=== PATIENT | female | born 1995 | race Hispanic/Latino ===

== ENCOUNTER 2023-10-20 06:08 | Inpatient (IN) | payer MEDICARE, OTHER ==
[2023-10-20] VITALS (14 sets, daily range): BP systolic 158–198; BP diastolic 85–113; PULSE 84–110; RESP 16–22; TEMP 98.2–98.4; O2SAT 95
[~2023-10-20] VITALS: Ht 162.6 cm; Wt 88.5 kg
[~2023-10-20 06:08] MED LIST: LISI40TA9 PO; METO50TA18 PO
[2023-10-20 06:52] LABS: BASOPHILS # (AUTO) 0.04 K/uL (0.00-0.20); BASOPHILS % (AUTO) 0.8 % (0.0-5.0); EOSINOPHILS # (AUTO) 0.14 K/uL (0.00-0.70); EOSINOPHILS % (AUTO) 2.7 % (0.0-8.0); IMMATURE GRANULOCYTE ABSOLUTE 0.02 K/uL (0-1); LYMPHOCYTES # (AUTO) 1.8 K/uL (1.0-4.8); MEAN CORPUSCULAR HEMOGLOBIN 30.1 pg (27.0-33.0); MEAN CORPUSCULAR VOLUME 94.3 fL (79-99); MONOCYTES # (AUTO) 0.4 K/uL (0.1-1.0); MONOCYTES % (AUTO) 8.3 % (3.0-13.0); NEUTROPHILS # (AUTO) 2.7 K/uL (1.8-7.7); NEUTROPHILS % (AUTO) 52.8 % (40.0-77.0); PLATELET COUNT (AUTO) 150 K/uL (130-400); RED BLOOD CELL COUNT(AUTO) 2.09 MIL/uL (4.00-5.50); RED CELL DISTRIBUTION WIDTH 18.9 % (11.0-15.5); WHITE BLOOD COUNT (AUTO) 5.2 K/uL (4.8-10.8)
[2023-10-20 07:01] LABS: ALBUMIN 2.5 g/dL (3.5-5.0); POTASSIUM 4.5 mmol/L (3.5-5.1)
[2023-10-20 07:05] LABS: BILIRUBIN,TOTAL 0.3 mg/dL (0.2-1.0); TOTAL PROTEIN, SERUM 5.8 g/dL (6.0-8.3)
[2023-10-20 07:07] LABS: HEMATOCRIT 19.7 % (36-48)
[2023-10-20] MEDS: CLONIDINE HCL 0.1 MG TABLET PO ONE (07:08)
[2023-10-20 07:32] LABS: INR 0.98 (0.85-1.15); PARTIAL THROMBOPLASTIN TIME 24.7 SEC (26.3-35.5); PROTHROMBIN TIME 10.4 SEC (9.6-11.6)
[2023-10-20] MEDS: LORAZEPAM 2 MG/ML 1 ML VIAL IVP ONE (07:48)
[2023-10-20] MEDS: FUROSEMIDE 40MG VIAL IV SCH (07:59)
[2023-10-20] MEDS ORDERED: METO100T14 PO (08:17)
[2023-10-20] MEDS ORDERED: FERR-72 PO (08:17)
[2023-10-20] MEDS ORDERED: AMLO-258 PO (08:17)
[2023-10-20] MEDS ORDERED: CALC0.253 PO (08:17)
[2023-10-20] MEDS ORDERED: LISI40TA9 PO (08:17)
[2023-10-20] MEDS ORDERED: MINO2.5T3 PO (08:17)
[2023-10-20] MEDS ORDERED: FERR210T PO (08:17)
[2023-10-20 09:19] LABS: PHOSPHORUS 8.2 mg/dL (2.5-4.9)
[2023-10-20] MEDS ORDERED: VANCOMYCIN PROTOCOL PER PHARMACY IV SCH (09:30)
[2023-10-20] MEDS: HYDRALAZINE 20MG/ML VIAL IV PRN (09:33)
[2023-10-20] MEDS ORDERED: PHARMACY COMMUNICATION MISC SCH ×2 (10:30→16:00)
[2023-10-20] MEDS: 0.9%NACL 1000ML 1,000 ML IV SCH (11:10)
[2023-10-20] MEDS: HEPARIN 5,000 UNIT VIAL IJ SCH (11:37)
[2023-10-20] MEDS: SEVELAMER HCL 800 MG TABLET PO SCH (12:00)
[2023-10-20] MEDS: ALPRAZOLAM 0.25 MG TABLET PO PRN (16:36)
[2023-10-20] MEDS: VANCOMYCIN 1.5 GM/250 ML BAG 250 ML IV ONE (16:37)
[2023-10-20] MEDS: AMLODIPINE 5 MG TAB PO SCH (16:37)
[2023-10-20] MEDS: METOPROLOL TARTRATE 50 MG TAB PO SCH (16:42)
[2023-10-20] MEDS: ONDANSETRON 4MG INJ IVP PRN (20:52)
[2023-10-20] MEDS ORDERED: ACETAMINOPHEN 500 MG TABLET PO PRN (23:30)
[2023-10-20] MEDS: GUAIFENESIN-DM 200/20 MG 10 ML PO PRN (23:31)
[2023-10-20] MEDS: ACETAMINOPHEN 325 MG TAB PO PRN (23:32)
[2023-10-21] VITALS (16 sets, daily range): BP systolic 153–199; BP diastolic 87–124; PULSE 83–99; RESP 14–20; TEMP 98–98.4; O2SAT 96
[2023-10-21] MEDS: HYDROCODONE/ACETAMINOPHEN 10/325 MG TAB PO PRN (00:45)
[2023-10-21 05:57] LABS: BASOPHILS # (AUTO) 0.08 K/uL (0.00-0.20); BASOPHILS % (AUTO) 1.9 % (0.0-5.0); EOSINOPHILS # (AUTO) 0.39 K/uL (0.00-0.70); EOSINOPHILS % (AUTO) 9.2 % (0.0-8.0); HEMATOCRIT 24.5 % (36-48); IMMATURE GRANULOCYTE ABSOLUTE 0.02 K/uL (0-1); LYMPHOCYTES # (AUTO) 1.3 K/uL (1.0-4.8); MEAN CORPUSCULAR HEMOGLOBIN 29.8 pg (27.0-33.0); MEAN CORPUSCULAR HGB CONC 30.6 g/dL (32.0-36.0); MEAN CORPUSCULAR VOLUME 97.2 fL (79-99); MONOCYTES # (AUTO) 0.6 K/uL (0.1-1.0); MONOCYTES % (AUTO) 14.2 % (3.0-13.0); NEUTROPHILS # (AUTO) 1.9 K/uL (1.8-7.7); NEUTROPHILS % (AUTO) 44.2 % (40.0-77.0); PLATELET COUNT (AUTO) 120 K/uL (130-400); RED BLOOD CELL COUNT(AUTO) 2.52 MIL/uL (4.00-5.50); RED CELL DISTRIBUTION WIDTH 18.1 % (11.0-15.5); WHITE BLOOD COUNT (AUTO) 4.2 K/uL (4.8-10.8)
[2023-10-21 06:39] LABS: PHOSPHORUS 7.5 mg/dL (2.5-4.9); POTASSIUM 4.3 mmol/L (3.5-5.1)
[2023-10-21] MEDS: 0.9%NACL 1000ML IV PRN (09:00)
[2023-10-21] MEDS ORDERED: HEPARIN 5,000 UNIT VIAL IJ PRN (10:00)
[2023-10-21] MEDS: LISINOPRIL 40 MG TABLET PO SCH (12:08)
[2023-10-21] MEDS: MINOXIDIL 2.5 MG TAB PO SCH (12:09)
[2023-10-21] MEDS ORDERED: EPOETIN ALFA-EPBX (NON-ESRD) 10,000 UNIT/ML VIAL SQ SCH (16:00)
[2023-10-22] MEDS ORDERED: VANCOMYCIN 750MG VIAL IVPB SCH (16:00)
== END 2023-10-21 15:30 | disposition home or self-care (01) | DRG 682 ==
LOC: EDH 06:08 → EDHIP 07:18 → 3BH 12:05
PROVIDERS: ADMIT Hospitalist; ATTEND Hospitalist
PROC: 30233N1 Transfusion of Nonautologous Red Blood Cells into Peripheral Vein, Percutaneous Approach (ICD-10-PCS; principal; 2023-10-20)
PROC: 5A1D70Z Performance of Urinary Filtration, Intermittent, Less than 6 Hours Per Day (ICD-10-PCS; 2023-10-20)
PROC: 5A1D70Z Performance of Urinary Filtration, Intermittent, Less than 6 Hours Per Day (ICD-10-PCS; 2023-10-21)
DX: I12.0 Hypertensive chronic kidney disease with stage 5 chronic kidney disease or end stage renal disease (principal); N18.6 End stage renal disease; E44.0 Moderate protein-calorie malnutrition; I16.1 Hypertensive emergency; E87.70 Fluid overload, unspecified; R06.03 Acute respiratory distress; D50.0 Iron deficiency anemia secondary to blood loss (chronic); E83.51 Hypocalcemia; E66.9 Obesity, unspecified; D63.8 Anemia in other chronic diseases classified elsewhere; Z82.49 Family history of ischemic heart disease and other diseases of the circulatory system; Z99.2 Dependence on renal dialysis; Z68.33 Body mass index [BMI] 33.0-33.9, adult; Z79.899 Other long term (current) drug therapy
CPT/HCPCS: 36415; 36430; 71045; 76705; 80048; 80053; 83605; 83735; 84100; 84484; 85025; 85610; 85730; 86704; 86706; 86850; 86900; 86901; 86923; 87040; 87340; 90935; 93005; 96375; G0378; J0360; J1644; J1940; J2060; J2405; P9016; J3370; Q5106

== ENCOUNTER 2024-04-09 23:12 | Emergency (ER) | payer MEDICARE ==
[~2024-04-09] VITALS: Ht 162.6 cm; Wt 92.2 kg
[~2024-04-09 23:12] MED LIST changes: +AMLO-258 PO; +CALC0.253 PO; +FERR-72 PO; +FERR210T PO; +METO100T14 PO; -METO50TA18 PO; +MINO2.5T3 PO
[2024-04-09 23:13] VITALS: BP 148/94; PULSE 92; RESP 20; TEMP 98
[2024-04-09] MEDS ORDERED: CYCLOBENZAPRINE HCL 10 MG TABLET PO ONE (23:30)
[2024-04-09] MEDS ORDERED: traMADol HCL 50 MG TABLET PO ONE (23:30)
--- NOTE | 2024-04-09 23:36 | ERN ---
ED Note History of Present Illness Stated Complaint: RT ARM PAIN Chief Complaint: Upper Extremity Pain/Injury Time Seen by MD: 23:13 Dictation: Patient is a 28-year-old female with a past medical history of hypertension, end-stage renal disease on hemodialysis. Patient has a right-sided subclavian Port-A-Cath catheter inserted. Patient believes that pain is related to catheter. She denies trauma to the right shoulder. Allergies: Coded Allergies: No Known Drug Allergies (Unverified Allergy, Unknown, 05/07/23) Home Meds Reported Medications Minoxidil (Minoxidil) 2.5 Mg Tablet, 2.5 MG PO DAILY, TAB 10/20/23 Lisinopril (Lisinopril) 40 Mg Tablet, 40 MG PO DAILY, TAB 10/20/23 Amlodipine Besylate (Amlodipine Besylate) 10 Mg Tablet, 10 MG PO DAILY for 30 Days, #30 TAB 0 Refills 10/20/23 Ferrous Sulfate (Ferrous Sulfate) 325 Mg (65 Mg Iron) Tablet, 325 MG PO BID, TAB 10/20/23 Ferric Citrate (Ferric Citrate) 210 Mg Iron Tablet, 210 MG PO DAILY, TAB 10/20/23 Calcitriol (Calcitriol) 0.25 Mcg Capsule, 0.25 MCG PO DAILY, CAP 10/20/23 Metoprolol Tartrate (Metoprolol Tartrate) 100 Mg Tablet, 100 MG PO BID, TAB 10/20/23 Past Medical History Past Medical History: Hypertension, Renal Disese, Renal Failure, Other Additional Past Medical Hx: Infected peritoneal dialysis catheter. Surgical History: Surgical History Other: D&C, PERITONEAL PORT, RT UPPER CHEST HD Family History: HTN History: Not Applicable LMP: Mar 31, 2024 Review of System Dictation NEGATIVE EXCEPT PER HPI Constitutional: Negative for fever,chills, and weight loss Eyes: Negative for injury, pain,redness, and discharge ENT: Negative for injury,pain or swelling Cardiovascular: denies chest pain, palpitations, and edema Respiratory: Negative for shortness of breath, cough, and wheezing, Abdomen/GI: Negative for abdominal pain, nausea, vomiting, diarrhea, and constipation Back: Negative for injury and pain : Negative for injury, bleeding and discharge MS/Extremity: Right shoulder pain times a week Skin: Negative for rash, and discoloration Neuro: Negative for headache, weakness, numbness, tingling, and seizure Psych: Negative for suicide ideation, homicidal ideation, and hallucinations Initial Vital Sign VS Vital Signs Date Time Temp Pulse Resp B/P (MAP) Pulse Ox O2 Delivery O2 Flow Rate FiO2 04/09/24 23:13 98.1 92 20 148/94 98 Room Air Physical Exam Dictation General: awake, alert, NAD Head/Face: Normocephalic, atraumatic Eyes: PERRL, EOMI, vision at baseline ENT: oral cavity clear, TMs clear, no signs of infection Neck: Trachea midline, supple, no nuchal rigidity Cardiovascular: RRR, normal S1/S2, No MRGs, no JVD Respiratory: CTAB, no respiratory distress, No rales or wheezes Abdomen: Soft , no tender Skin: Warm, dry, normal turgor, no rash MS/Extremity: Decreased range of motion of right shoulder due to pain Neuro: COAx4, GCS 15, strength 5/5, CN 2-12 intact, normal cerebellar exam, normal gait, Psych: Normal behavior, mood, and affect normal ED Course ED Course Orders Procedure Category Date Status Time Shoulder Comp 2+Vws Rt RAD 04/09/24 Logged 23:22 Chest 1vw RAD 04/09/24 Logged 23:24 Tramadol Hcl (Ultram) PHA 04/09/24 Complete 23:30 Cyclobenzaprine Hcl PHA 04/09/24 Complete (Cyclobenzaprine Hcl 23:30 Current Medications Medications (Trade) Dose Ordered Sig/Maggy Route PRN Reason Start Time Stop Time Status Last Admin Dose Admin Cyclobenzaprine HCl (Cyclobenzaprine HCl) 10 mg ONCE ONCE PO 04/09/24 23:30 04/09/24 23:31 DC Tramadol HCl (UltRAM) 50 mg ONCE ONCE PO 04/09/24 23:30 04/09/24 23:31 DC Vital Signs Date Time Temp Pulse Resp B/P (MAP) Pulse Ox O2 Delivery O2 Flow Rate FiO2 04/09/24 23:13 98.1 92 20 148/94 98 Room Air Medical Decision Making MDM Patient is a 28-year-old female with a past medical history of hypertension, end-stage renal disease on hemodialysis. Patient has a right-sided subclavian Port-A-Cath catheter inserted. Patient believes that pain is related to catheter. She denies trauma to the right shoulder. -right shoulder pain -frozen shoulder -rotator cuff injury -malposition of Port-A-Cath Ordered right shoulder and chest x-ray Pain medication ordered. DX & DISP Disposition: AMA Departure Impression: Primary Impression: Shoulder pain Condition: Stable Referrals: PETER ENGEL MD (PCP) MAURICE OLIVAS MD Apr 09, 2024 23:36
--- NOTE | 2024-04-10 00:18 | NUR ---
NO ANSWER WHEN CALLED FOR ROOM PLACEMENT
--- NOTE | 2024-04-10 00:27 | NUR ---
PT CALLED, NO ANSWER
== END 2024-04-10 00:32 | disposition left against medical advice (07) ==
LOC: EDH 23:12
DX: M25.511 Pain in right shoulder (principal); I10 Essential (primary) hypertension; Z79.899 Other long term (current) drug therapy; Z98.890 Other specified postprocedural states
CPT/HCPCS: 99281